=== PATIENT | female | born 1980 | race Caucasian/White ===

== ENCOUNTER 2020-08-01 08:52 | Emergency (ER) | payer SELFPAY ==
--- NOTE | 2020-08-01 09:40 | EDM.PDOC ---
ED HPI GENERAL MEDICAL PROBLEM - General Chief Complaint: Lower Extremity Injury/Pain Stated Complaint: RIGHT KNEE PAIN Time Seen by Provider: 08/01/20 09:02 Source of Information: Reports: Patient History Limitations: Reports: No Limitations - History of Present Illness INITIAL COMMENTS - FREE TEXT/NARRATIVE: 39-year-old female presents the emergency room with complaints of right knee pain. She states that this pain started about 3 weeks ago but has steadily progressed and become more severe. She reports that she had a promotion at work and is now on her feet most days and this is caused her knee pain to increase. She states it started out as a dull ache along the medial aspect of the patella. But would subside with rest. It is now progressed to dull achiness when resting with her feet elevated however when she is on her feet and ambulating throughout the day flexing and extending the knee causes a stabbing burning pain to the medial patellar area. She also reports that she does feel a grinding in her knee when she is up and ambulating. She does report some increased swelling to the medial patellar area over the course of the past few days. She has tried taking ibuprofen however she states this is not helpful. She denies any history of recent trauma or injury to the right knee. She denies any significant medical history. She does not take any prescription medications. She does not take control. She smokes 1 cigarette very rarely. Of note, she is obese with a BMI of 46. 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: Acetaminophen Right Knee Pain Score (Numeric/FACES): 10 - Related Data Allergies Allergy/AdvReac Type Severity Reaction Status Date / Time amoxicillin Allergy Other Verified 08/01/20 09:02 NSAIDS (Non-Steroidal Allergy Other Verified 08/01/20 09:02 Anti-Inflamma Home Meds: Home Meds Famotidine [Acid Front End Developer Designer] 10 mg PO BEDTIME 08/01/20 [History] oxyCODONE HCl/Acetaminophen [Percocet 5-325 mg Tablet] 1 each PO Q6H #10 tablet 08/01/20 [Rx] Past Medical History HEENT History: Reports: Impaired Vision Cardiovascular History: Reports: Hypertension Respiratory History: Reports: None Gastrointestinal History: Reports: Cholelithiasis, GERD Genitourinary History: Reports: None 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: , Other (See Below) Other AUXILIARY EQUIPMENT OPERATOR History: IVF Musculoskeletal History: Reports: None Neurological History: Reports: None Psychiatric History: Reports: Other (See Below) Other Psychiatric History: postpartium depression Endocrine/Metabolic History: Reports: Obesity/BMI 30+ Hematologic History: Reports: None Immunologic History: Reports: None Oncologic (Cancer) History: Reports: None Dermatologic History: Reports: None - Infectious Disease History Infectious Disease History: Reports: Chicken Pox - Past Surgical History Head Surgeries/Procedures: Reports: None HEENT Surgical History: Reports: Tonsillectomy GI Surgical History: Reports: Bariatric Procedure, Cholecystectomy Other GI Surgeries/Procedures: sleeve 2017 Musculoskeletal Surgical History: Reports: None Social & Family History - Family History Family Medical History: No Pertinent Family History Cardiac: Reports: CAD, Other (See Below) Other Cardiac Family History: graves dx Endocrine/Metabolic: Reports: Diabetes, type II - Tobacco Use Tobacco Use Status *Q: Current Some Day Tobacco User Years of Tobacco use: 17 Packs/Tins Daily: 0.1 - Caffeine Use Caffeine Use: Reports: Coffee, Energy Drinks - Recreational Drug Use Recreational Drug Use: No Review of Systems - Review of Systems Review Of Systems: Comprehensive ROS is negative, except as noted in HPI. ED EXAM, GENERAL - Physical Exam Exam: See Below Exam Limited By: No Limitations General Appearance: Alert, WD/WN, Mild Distress Ears: Normal External Exam, Hearing Grossly Normal Nose: Normal Inspection Throat/Mouth: Normal Inspection, Normal Lips, Normal Voice, No Airway Compromise Head: Atraumatic Neck: Normal Inspection, Supple Respiratory/Chest: No Respiratory Distress, No Accessory Muscle Use Cardiovascular: Normal Peripheral Pulses, Regular Rate, Rhythm GI/Abdominal: No Distention (Female) Exam: Deferred Rectal (Female) Exam: Deferred Back Exam: Normal Inspection Extremities: Normal Inspection, No Pedal Edema, Normal Capillary Refill, Limited Range of Motion (Patient reports pain with full flexion and extension of right knee. Pain is located along the medial aspect of the patella.). No: Non-Tender (Tenderness is noted along the medial aspect of the patella with palpation.) Neurological: Alert, Oriented, Normal Cognition Psychiatric: Normal Affect, Normal Mood Skin Exam: Warm, Dry, Intact, Normal Color, No Rash Lymphatic: No Adenopathy Course - Vital Signs Text/Narrative:: Upon assessment the patient does have increased pain with valgus stress on the right knee. Anterior and posterior drawer tests were negative. I have ordered a xray of the right knee. Last Recorded V/S: Last Vital Signs Temp 97.1 F 08/01/20 09:09 Pulse 73 08/01/20 09:09 Resp 20 08/01/20 09:09 BP 150/82 H 08/01/20 09:09 Pulse Ox 100 08/01/20 09:09 - Orders/Labs/Meds Orders: Active Orders 24 hr Category Date Time Status Knee Min 4V Rt [CR] Stat Exams 08/01/20 09:26 Taken - Re-Assessments/Exams Free Text/Narrative Re-Assessment/Exam: 08/01/20 10:25 Xray of right knee was reviewed by myself and Dr. Lara: joint space is decreased. Arthritic changes are noted. Official radiologist report is pending. Pt will be discharged to home with recommendations that she follow up with her primary care provider by for further evaluation. Pt will be sent home with recommendations that she take Tylenol 1000mg four times daily. She was given strict instructions not to exceed this dose. She may take one percocet in place of tylenol dose for more severe pain. Departure - Departure Time of Disposition: 10:28 Disposition: Home, Self-Care 01 Condition: Good Clinical Impression: Right medial knee pain - Discharge Information Prescriptions: oxyCODONE HCl/Acetaminophen [Percocet 5-325 mg Tablet] 1 each PO Q6H #10 tablet Instructions: Acute Knee Pain, Adult Referrals: Zoraida Zarco NP [Primary Care Provider] - Forms: ED Department Discharge, ED Return to Work/School Form Additional Instructions: You were seen in the emergency department today with complaints of pain to your right medial knee. X-rays were completed and these did show arthritic changes and there is nearly [id number] in the area of your discomfort. You will need to follow-up with your primary provider, Zoraida Zarco, at the clinic by of this week for further evaluation. Until then recommend that you take Tylenol 1000 mg every 6-8 hours. Do not exceed 4000 mg in 24 hours. I have sent a prescription for Percocet tabs to your pharmacy. You can take 1 tab along with [address] of your regular Tylenol dose. This is a narcotic pain medication so you cannot be driving or operating machinery while taking this medication as it can cause drowsiness. Recommend elevating the right leg is much as possible, rest, ice 30 minutes at a time every 3 hours while awake. Sepsis Event Note (ED) - Evaluation Sepsis Screening Result: No Definite Risk - Focused Exam Vital Signs: Vital Signs Temp Pulse Resp BP Pulse Ox 08/01/20 09:09 97.1 F 73 20 150/82 H 100 - My Orders Last 24 Hours: My Active Orders 08/01/20 09:26 Knee Min 4V Rt [CR] Stat - Assessment/Plan Last 24 Hours: My Active Orders 08/01/20 09:26 Knee Min 4V Rt [CR] Stat
--- NOTE | 2020-08-01 10:44 | CR ---
Right knee: 4 views of the right knee were obtained. Comparison: No previous right knee imaging is available. Deformity is noted to the lateral tibial plateau possibly due to old injury. Osteophytes are noted off the medial and lateral joints. Old healed fracture appears to be present within the proximal fibula. Joint space narrowing is suggested within the patellofemoral joint with osteophytes also noted within the patellofemoral joint. Impression: 1. Degenerative change within the right knee as noted above. 2. Findings suspicious for deformity from old healed fractures. Diagnostic code #3
== END 2020-08-01 10:42 | disposition home or self-care (01) ==
LOC: JD.ED 08:52
DX: M25.561 Pain in right knee (principal); I10 Essential (primary) hypertension; E66.9 Obesity, unspecified; Z68.30 Body mass index [BMI] 30.0-30.9, adult; Z72.0 Tobacco use; Z79.899 Other long term (current) drug therapy
CPT/HCPCS: 73564-26-RT; 73564-RT; 99283; 99283-25